=== PATIENT | female | born 1975 | race African-American/Black ===

== ENCOUNTER 2019-03-03 11:02 | Observation (INO) | payer OTHER ==
[2019-03-03 11:39] LABS: ABS Basophils 0.1 10^3/ul (0-0.2); ABS Eosinophils 0.1 10^3/ul (0-0.6); ABS Lymphocytes 2.5 10^3/ul (1.0-4.8); ABS Monocytes 0.6 10^3/ul (0-0.8); ABS Neutrophils 3.3 10^3/ul (1.5-7.7); Eosinophil % 2.1 %; Hematocrit 40 % (35-47); Hemoglobin 13.2 g/dL (12.0-16.0); Lymphocyte % 37.5 %; Mean Corpuscular HGB Conc 33 g/dL (31-36); Mean Corpuscular Hemoglobin 28 pg (27-31); Mean Corpuscular Volume 85 fL (80-97); Mean Platelet Volume 8.9 fL (7.4-10.4); Platelet Count 240 10^3/uL (150-450); Red Blood Count 4.67 10^6 /uL (3.70-4.87); Red Cell Distribution Width 13 % (10-15); White Blood Count 6.5 10^3/uL (3.5-10.8)
[2019-03-03 11:55] LABS: Activated Partial Thrombo Time 29.7 seconds (26.0-38.0); INR 0.91 (0.82-1.09)
[2019-03-03] MEDS ORDERED: Clindamycin 900 MG/D5W BAG(*) 900 MG/50 ML BAG IVPB ONE (12:00)
[2019-03-03] MEDS ORDERED: Scopolamine 1.5 mg* PATCH ONE (12:04)
[2019-03-03] MEDS ORDERED: Ondansetron INJ* 2 MG/ML VIAL ONE (12:05)
[2019-03-03] MEDS ORDERED: oxyCODONE SR TAB(*) 10 MG TAB.SR ONE (12:05)
[2019-03-03] MEDS ORDERED: LORazepam TAB(*) 1 MG ONE (12:05)
[2019-03-03] MEDS ORDERED: Naproxen TAB* 250 MG ONE (12:05)
[2019-03-03] MEDS ORDERED: Lidocaine 1% INJ* 10 MG/ML 30 ML SDV ONE (12:55)
[2019-03-03] MEDS ORDERED: Iohexol 350 (CONTRAST) 200 ML MDV IV ONE ×2 (12:56→14:37)
[2019-03-03] MEDS ORDERED: Heparin 2 UNITS/ML IVPREMIX* 2,000 ML IV ONE (12:56)
[2019-03-03] MEDS ORDERED: fentaNYL* 50 MCG/ML 5 ML VIAL (250 MCG VIAL) ONE ×2 (12:57→15:05)
[2019-03-03] MEDS ORDERED: Midazolam* 1 MG/ML 5 ML VIAL (5 MG) ONE ×2 (12:58→14:52)
[2019-03-03] MEDS ORDERED: Ketorolac INJ* 30 MG/ML 1 ML VIAL ONE ×2 (12:58→15:06)
[2019-03-03] MEDS ORDERED: nitroGLYCERIN DRIP* 25,000 MCG/250 ML BTL ONE (13:19)
[2019-03-03] MEDS ORDERED: fentaNYL* 50 MCG/ML 2 ML VIAL (100 MCG VIAL) ONE ×2 (14:27→14:47)
[2019-03-03] MEDS ORDERED: Metoprolol Tartrate IV* 1 MG/ML 5 ML VIAL ONE ×2 (15:13→16:14)
[2019-03-03] MEDS ORDERED: HYDROmorphone INJ1* 1 MG/ML SYRINGE ONE ×2 (15:20→15:38)
[2019-03-03] MEDS ORDERED: hydrALAZINE IV* 20 MG/ML VIAL ONE (15:33)
[2019-03-03] MEDS ORDERED: Naloxone* 0.4 MG/ML 1 ML VIAL IV PUSH PRN (16:16)
[2019-03-03] MEDS ORDERED: HYDROmorphone PCA* 20 MG/20 ML PCA.SYRING ONE (16:33)
[2019-03-03] MEDS ORDERED: HYDROmorphone PCA* 20 MG/20 ML PCA.SYRING PCA SCH (17:00)
[2019-03-03] MEDS ORDERED: Acetaminophen TAB* 325 MG PO PRN (17:23)
[2019-03-03] MEDS ORDERED: hydrALAZINE IV* 20 MG/ML VIAL IV SLOW PU PRN (17:29)
--- NOTE | 2019-03-03 18:52 | PN ---
Progress Note - Progress Note Date of Service: 03/03/19 SOAP: Subjective: Patient sleeping, but arousable. Reports pain rated at 5/10 after waking. Denies nausea or emesis. Requesting hoang michael. Denies CP or SOB. Objective: Selected Entries 03/03/19 18:00 Pulse Rate 85 Respiratory 18 Rate Blood Pressure 148/108 (mmHg) Blood Pressure 121 Mean O2 Sat by Pulse 100 Oximetry Patient on Room Yes Air Sleeping, but arousable to voice. NAD, AAO x 3 Abdomen is soft and tender to suprapubic palpation. Right groin is soft, nontender Dressing is CDI 2+ pulse palpable at Right ADJUTANT GENERAL and pop Assessment: 43 YOF, h/o of hypertension, s/p Uterine Fibroid Arterial Embolization. Pain and nausea are well controlled (patient sleeping). Hypertension is improved. Plan: 1. Standard Interventional Radiology post UFE protocol. 2. BP management per hospitalists. 3. Will see in AM for PO to IV pharmacotherapy transition.
[2019-03-03] MEDS: amLODIPine TAB* 5 MG PO SCH (19:26)
[2019-03-03] MEDS: Ketorolac INJ* 30 MG/ML 1 ML VIAL IV SCH (19:27)
[2019-03-03] MEDS: Ondansetron INJ* 2 MG/ML VIAL IV SCH (19:28)
--- NOTE | 2019-03-03 22:41 | HP ---
CC: Dr. Miramontes * HISTORY AND PHYSICAL: DATE OF ADMISSION: 03/03/19 PROVIDER: Kavya Ko NP PRIMARY CARE PROVIDER: Dr. Arevalo. ATTENDING PHYSICIAN WHILE IN THE HOSPITAL: Dr. Magaly Alvarez * (dictated by Kavya Ko NP). CHIEF COMPLAINT: Uterine artery fibroid embolization. HISTORY OF PRESENT ILLNESS: Ms. Mckeon is a 43-year-old female with past medical history significant for hypertension, primary osteoarthritis, asthma, anxiety and migraines, and excessive menstruation, who presented to [facility] for an elective uterine artery fibroid embolization with Dr. Miramontes. In brief, the patient had excessive menstruations and excessive bleeding, so opted to have an elective uterine artery fibroid embolization with Dr. Miramontes. PAST MEDICAL HISTORY: Significant for: 1. Hypertension. 2. Primary osteoarthritis. 3. Asthma. 4. Anxiety. 5. Migraines. 6. Excessive menstruation. PAST SURGICAL HISTORY: 1. Kidney stones. 2. Appendectomy. 3. Cholecystectomy. HOME MEDICATIONS: Include amlodipine 5 mg p.o. daily. ALLERGIES: No known drug allergies. Allergy to SHELLFISH. FAMILY HISTORY: Father at the age of 62 from heart disease. Mother with AFib, diabetes, and kidney disease. Brother with ear cancer. Sister with throat cancer. SOCIAL HISTORY: The patient smokes half a pack a day. She drinks alcohol occasionally on the weekends. She does report marijuana use. She is a full code. Surrogate decision maker in the event she is unable to make her own decisions is her sister, Jazmin, her phone number is [phone]. REVIEW OF SYSTEMS: The patient has had no recent fever, chills, unintended weight loss. She denies any chest pain, shortness of breath. Denies any nausea , vomiting, diarrhea. She does report mild lower abdominal pain post surgery. She denies any urinary frequency, urgency or pain with urination. She denies any focal weakness or sensory loss. Denies any visual complaints, dysphagia, arthralgias, myalgias, rashes, lesions, open sores. Review of 14 systems completed. All others were negative. PHYSICAL EXAMINATION GENERAL: At this time, Mike is a 43-year-old female. She is drowsy, resting in bed in her hospital room. She is in no acute distress. VITAL SIGNS: Blood pressure 149/97, heart rate 89, respirations 14, O2 saturation 100%, temperature was 97.7. HEENT: Head is atraumatic, normocephalic. Eyes: EOMs are intact. Sclerae anicteric and not pale. Oral mucosa appeared to be moist. NECK: Supple. LUNGS: Clear to auscultation bilaterally. No wheezes, rales, or rhonchi. CARDIAC: S1, S2. Regular rate and rhythm. No murmurs, rubs, or gallops. ABDOMEN: Soft and nontender. Bowel sounds are present x4. EXTREMITIES: She is able to move all 4 extremities. There is no clubbing or cyanosis. Pedal pulses are +2 bilaterally. NEUROLOGIC: She is drowsy. Resting in the stretcher in the hospital room. She is oriented x3. Her speech is clear. There are no gross focal deficits. SKIN: Intact. DIAGNOSTIC STUDIES/LAB DATA: CBC: WBCs 6.5, RBCs 4.67, hemoglobin 13.2, hematocrit 40, platelet count was 240,000. INR was 0.91, aPTT was 29.7. Beta- hCG was less than 0.60. ASSESSMENT AND PLAN: Ms. Mckeon is a 43-year-old female who presented to [facility] today for an elective uterine artery fibroid embolization with Dr. Miramontes. She will be admitted under observation for: 1. Uterine artery fibroid embolization. She can have Tylenol as needed for mild pain or fever. She has hydromorphone FRONT COUNTER ATTENDANT for pain management and she will have Toradol as ordered by Dr. Miramontes. She can have Zofran as needed for nausea. 2. Hypertension. The patient should continue on amlodipine 5 mg p.o. daily as previously prescribed. I will give her a dose this evening as she has been hypertensive postoperatively. I suspect her increased blood pressure is related to her pain associated with her recent procedure. I will order hydralazine as needed for systolic blood pressure greater that 180. 3. FEN. She can have a regular diet. 4. Code Status. She is a full code. 5. DVT prophylaxis. I will place her on SCDs. TIME SPENT: Time spent on this admission was 60 minutes, greater than half the time was spent on [id number] with the patient, obtaining my history and physical, the other half of the time was spent going over my plan of care and implementing my plan of care. I have discussed this with my attending, Dr. Magaly Alvarez; she is in agreement with my plan. KAVYA KO, ERIN [id number]/[facility] #: [id number] VLAD
[2019-03-04] MEDS: Ketorolac INJ* 30 MG/ML 1 ML VIAL IV SCH ×2 (00:20→05:12)
[2019-03-04] MEDS: Ondansetron INJ* 2 MG/ML VIAL IV SCH ×2 (00:20→05:13)
[2019-03-04 07:36] VITALS: BP 143/87
[2019-03-04] MEDS: amLODIPine TAB* 5 MG PO SCH (08:30)
--- NOTE | 2019-03-04 08:56 | PN ---
Progress Note - Progress Note Date of Service: 03/04/19 SOAP: Subjective: "steady crampy pain" rated 6/10 mild episodic nausea, but no emesis has drank water and clear liquids overnight. no solid food yet. + void. + vaginal bleeding. Objective: Selected Entries 03/04/19 07:35 Temperature 98.3 F Temperature Oral Source Pulse Rate 111 Respiratory 16 Rate Blood Pressure 143/87 (mmHg) Blood Pressure 105 Mean O2 Sat by Pulse 100 Oximetry NAD, AAO x 3 Low abdomen is soft, minimally tender to palpation. No rebound or guarding. Right groin is soft, nontender. Dressing is CDI. 2+ pulses right STATISTICAL TYPIST and pop Assessment: 43 YOF POD #1 s/p Uterine Artery Fibroid Embolization with pain and nausea controlled. Plan: 1. Transition IV to PO meds. 2. Encourage bland diet. 3. Ambulation. 4. Outpatient medications as follows: Toradol 10 mg PO Q 6 hours x 3 days (Dispense #15 with one refill) AFTER Toradol is complete: Ibuprofen 400 mg PO Q 6 hours OR Naprosyn 225 mg PO Q 8 hours for 3-5 days (do not take both) [place] 5/325, take 1 or 2 tablets by mouth Q 6 hours PRN breakthrough pain ( Dispense #40) Zofran 4 mg PO Q 6 hours x 7 days (Dispense #30 with one refill) Scopolamine 1.5 mg transdermal to mastoid process. On 03/06/19 at 900 AM, remove current patch, replace with new patch and wear x 3 days. Drink one cup of laxative tea daily (For example, "Smooth Move") for one week.
[2019-03-04] MEDS ORDERED: HYDROcodone/ACETAMIN 5-325 MG* 1 TAB PO PRN (08:57)
[2019-03-04] MEDS ORDERED: Ondansetron ODT TAB* 4 MG PO SCH (09:00)
[2019-03-04] MEDS ORDERED: Ketorolac TAB * 10 MG TAB PO SCH (09:00)
--- NOTE | 2019-03-05 21:28 | DS ---
CC: Dr. Pamela Arevalo; Dr. Naresh Miramontes * DISCHARGE SUMMARY: DATE OF ADMISSION: 03/03/19 DATE OF DISCHARGE: 03/04/19 PRIMARY CARE PROVIDER: Pamela Arevalo MD. MY ATTENDING WHILE IN THE HOSPITAL: Dr. Juaquin Jaeger.* (DICTATED BY ALICIA JOHNSON) PRIMARY DISCHARGE DIAGNOSIS: Uterine fibroids with excessive menstruation status post uterine fibroid embolization. SECONDARY DISCHARGE DIAGNOSES: 1. Hypertension. 2. Asthma. 3. Anxiety. 4. Migraines. STUDIES DONE WHILE IN HOSPITAL: Electrocardiogram shows sinus tachycardia. No ST- segment elevation or depression. No hypertrophy or enlargement. Wandering baseline. MEDICATIONS AT DISCHARGE: 1. Albuterol 1 puff inhalation daily as needed. 2. Alprazolam 0.5 mg p.o. daily. 3. Vitamin D 2000 units p.o. daily. 4. Amlodipine 5 mg p.o. daily. 5. [place] 2 tabs p.o. q.6 hours as needed for pain. 6. Toradol 10 mg p.o. q.6 hours x3 days. 7. Zofran 4 mg p.o. q.6 hours x4 days. 8. Meclizine 12.5 mg p.o. q.8 hours x3 days. 9. Ibuprofen or naproxen as needed. New Medications at Discharge: 1. Zofran. 2. Meclizine. 3. Ibuprofen. 4. [place]. 5. Toradol. Medications Discontinued at Discharge: None. HOSPITAL COURSE: This is a brief summary of the patient's presentation. For more details, please see the history and physical from Kavya Ko NP, and the progress notes from Dr. Naresh Miramontes on 03/03/19. In brief, the patient is a 43- year-old female with past medical history significant for the above who presented for an elective uterine artery fibroid embolization due to excessive menstruation which was undertaken by Dr. Naresh Miramontes on 03/03/19 with no complications. The patient was in severe pain after the procedure, as expected. This was managed with Dilaudid MEDICAL RESEARCH ASSISTANT as well as Toradol and Zofran. The patient improved, as is routine for patients undergoing fibroid embolization. The patient had some tachycardia, likely pain related. The patient also had some slightly elevated blood pressures, also very likely pain related. The patient had no concerning laboratory abnormalities. The patient had no concerning changes on her EKG. The patient improved till the pain in her abdomen was well controlled on oral [place] as well as Toradol. The patient was stable and amenable for discharge home on 03/04/19. PHYSICAL EXAMINATION ON THE DAY OF DISCHARGE: General: The patient is a 43- year- old female who appears her stated age and is sitting on the bed, in no acute distress. Vital Signs: At the time of evaluation, temperature 98.3, pulse rate 111, respiratory rate 16, oxygen saturation 100% on room air, and blood pressure 143/87. HEENT: Head normocephalic and atraumatic. Sclerae anicteric. No conjunctival injection. Nasal mucosa moist. Oral mucosa moist. No oropharyngeal erythema, discharge, or exudate. Neck: Supple and nontender. No lymphadenopathy. No carotids bruits auscultated. No JVD. Cardiac: Tachycardic. No clicks, murmurs, gallops, or rubs. Pulses 2+ in the dorsalis pedis, posterior tibialis and radial areas. Respiratory: Clear to auscultation bilaterally. No wheezes, rales, or rhonchi. Good air exchange bilaterally. Abdomen: Tender to palpation in the lateral lower quadrants. Bowel sounds present and normoactive in all 4 quadrants. No hepatosplenomegaly. Genitourinary: No suprapubic or CVA tenderness. Skin: Clean, dry, and intact. No rashes. Psychiatric: Pleasant and cooperative. DISCHARGE PLAN BY PROBLEM: 1. Excess menstruation status post uterine fibroid embolization. The patient is having vaginal bleeding to the degree that is expected after this procedure. The patient should follow up with Dr. Miramontes as routinely scheduled. The patient should return to the hospital for alarming symptoms such as high fevers , excessive menstrual bleeding, dizziness, chest pain, or shortness of breath. The patient should take pain medication scheduled and as needed as outlined in her discharge instructions using Toradol, transition to ibuprofen and naproxen, and [place] as needed for breakthrough pain. The patient should also take scheduled Zofran and as her insurance would not cover a scopolamine patch, the patient should take meclizine as scheduled for nausea control for a short-term basis. The patient should follow up with Dr. Miramontes as scheduled and follow up with primary care provider within 1 week for general medical management. 2. Hypertension. The patient is slightly hypertensive, likely related to pain. Continue the patient on amlodipine. The patient has not had her antihypertensives escalated while she was in the hospital. 3. Asthma. Continue inhaler as needed. 4. Anxiety. Continue the patient's alprazolam as needed. DISPOSITION: Home. CONDITION: Stable. DIET: Regular. ACTIVITY: As tolerated. TIME SPENT: Approximately 60 minutes were spent on the discharge of this patient, 30 of which were spent [id number] with the patient obtaining history and physical and discussing the treatment plan. ALICIA JOHNSON [id number]/[facility] #: [id number]
== END 2019-03-04 12:25 | disposition home or self-care (01) ==
LOC: CHICATH 11:02 → SSU 16:40
PROVIDERS: ADMIT Nurse Practitioner; ATTEND Radiology Diagnostic Radiology
DX: D25.9 Leiomyoma of uterus, unspecified (principal); N92.0 Excessive and frequent menstruation with regular cycle; I10 Essential (primary) hypertension; J45.909 Unspecified asthma, uncomplicated; F41.9 Anxiety disorder, unspecified; G43.909 Migraine, unspecified, not intractable, without status migrainosus; Z79.899 Other long term (current) drug therapy; Z87.442 Personal history of urinary calculi; F17.210 Nicotine dependence, cigarettes, uncomplicated
CPT/HCPCS: 36415; 37243; 75736; 76937; 84702; 85025; 85610; 85730; 93005; 99156; 99157; A9270-GY; C1769; C1884; C1887; G0378; J0360; J1170; J1644; J1885; J2250; J2405; J3010; J3490